=== PATIENT | female | born 1940 | race Caucasian/White ===

== ENCOUNTER → 2016-08-08 | Outpatient (CLI) | payer MEDICARE, OTHER ==
[~2016-08-08] MED LIST: AMARYL1 MG PO; BYSTOLIC5 MG PO; CRESTOR5 MG PO; PRILOSEC 20MG20 MG PO; SINGULAIR 110 MG/TAB PO; ZESTRIL 10MG10 MG PO; ZOFRAN8 MG PO
== END ==
LOC: COL.RAD 15:35
DX: I51.7 Cardiomegaly (principal); R05 Cough; Z87.09 Personal history of other diseases of the respiratory system

== ENCOUNTER → 2016-08-14 | Outpatient (CLI) | payer MEDICARE, OTHER | LOC: COL.VAS 11:59 | DX: I34.0 Nonrheumatic mitral (valve) insufficiency (principal); R94.39 Abnormal result of other cardiovascular function study; I51.7 Cardiomegaly; R05 Cough; I10 Essential (primary) hypertension ==

== ENCOUNTER → 2016-08-31 | Outpatient (CLI) | payer MEDICARE, OTHER | LOC: MC.RAD 12:48 | DX: Z12.31 Encounter for screening mammogram for malignant neoplasm of breast (principal) ==

== ENCOUNTER 2017-12-22 12:10 | Emergency (ER) | payer MEDICARE, OTHER ==
[~2017-12-22] VITALS: Ht 147.3 cm; Wt 74.4 kg
[2017-12-22 12:12] VITALS: TEMP 98.5
[2017-12-22] MEDS ORDERED: PROAIR HFA0.09 MG/AC IH (12:25)
[2017-12-22] MEDS ORDERED: 00186-0372-20 IH (12:26)
[2017-12-22 13:30] LABS: BASO % 0.5 % (0.0-2.0); EOS # 0.1 (0.0-0.7); EOS % 1.4 % (0-4.0); GRAN # 4.1 (1.4-6.5); GRAN % 71.6 % (42.2-75.2); HEMOGLOBIN 11.9 g/dl (12.5-16.0); LYMPH # 1.1 (1.2-3.4); LYMPH % 18.9 % (20.0-51.0); MEAN CELL VOLUME 93 fl (80.0-100.0); MEAN CORPUSCULAR HEMOGLOBIN 31 pg (27.0-31.0); MEAN CORPUSCULAR HGB CONC 33 g/dl (33.0-37.0); MEAN PLATELET VOLUME 10.8 fl (7.4-10.4); MONO # 0.4 (0.1-0.6); MONO % 7.1 % (1.7-9.3); PLATELET COUNT 176 K/mm3 (130-400); RED BLOOD COUNT 3.85 M/mm3 (4.10-5.30); REDCELL DISTRIBUTION WIDTH-CV 14.2 % (11.5-14.5)
[2017-12-22 13:31] LABS: HEMATOCRIT 35.7 % (37.0-47.0)
[2017-12-22 13:47] LABS: ALANINE AMINOTRANSFERASE 20 U/L (9-52); ALBUMIN 3.6 gm/dL (3.5-5.0); ALKALINE PHOSPHATASE 103 U/L (50-136); ANION GAP 12 mmol/L (7-16); AST,SGOT 21 U/L (15-37); BILIRUBIN,TOTAL 0.2 mg/dL (0.0-1.0); BLOOD UREA NITROGEN 14 mg/dL (7-17); CALCIUM 9.1 mg/dL (8.4-10.2); CARBON DIOXIDE 26 mmol/L (22-30); CHLORIDE 105 mmol/L (98-107); CREATININE, serum 0.55 mg/dL (0.52-1.25); GLUCOSE 179 mg/dL (74-106); SODIUM 144 mmol/L (137-145); TOTAL PROTEIN 7.1 gm/dL (6.4-8.2)
[2017-12-22 14:05] LABS: TROPONIN-I < 0.012 ng/mL (0.000-0.034)
[2017-12-22] MEDS ORDERED: PREDNISONE10 MG PO (14:29)
[2017-12-22 15:44] VITALS: BP 181/89; PULSE 60
== END 2017-12-22 15:45 | disposition home or self-care (01) ==
LOC: COL.ER 12:10
PROVIDERS: Emergency Medicine
DX: J45.901 Unspecified asthma with (acute) exacerbation (principal); R13.10 Dysphagia, unspecified; E11.9 Type 2 diabetes mellitus without complications
CPT/HCPCS: J1100

== ENCOUNTER → 2018-01-23 | Outpatient (CLI) | payer MEDICARE, OTHER ==
[~2018-01-23] MED LIST changes: +00186-0372-20 IH; +ATIVAN 0.50.5 MG/TAB PO; +PREDNISONE10 MG PO; +PROAIR HFA0.09 MG/AC IH
== END ==
LOC: COL.RAD 15:27
DX: R13.19 Other dysphagia (principal)
CPT/HCPCS: G8996-GN; G8997-GN; G8998-GN

== ENCOUNTER 2018-01-29 12:45 | Outpatient (RCR) | payer MEDICARE, OTHER, MEDICAID | END 2018-04-20 | disposition home or self-care (01) | LOC: WSST | DX: R13.10 Dysphagia, unspecified (principal) | CPT/HCPCS: G8996-GN; G8997-GN ==

== ENCOUNTER → 2018-02-26 | Outpatient (CLI) | payer MEDICARE, OTHER | LOC: COL.RAD 10:47 | DX: J44.9 Chronic obstructive pulmonary disease, unspecified (principal) ==

== ENCOUNTER 2021-06-24 16:58 | Emergency (ER) | payer MEDICARE, OTHER ==
[~2021-06-24] VITALS: Ht 147.3 cm; Wt 76.4 kg
[2021-06-24 17:36] VITALS: BP 186/67; PULSE 65; TEMP 98.8
[2021-06-24] MEDS ORDERED: CEPHALEXIN250 MG/5 M PO (17:46)
== END 2021-06-24 17:59 | disposition home or self-care (01) ==
LOC: COL.ER 16:58
DX: I88.9 Nonspecific lymphadenitis, unspecified (principal); J44.9 Chronic obstructive pulmonary disease, unspecified; E11.9 Type 2 diabetes mellitus without complications; Z79.84 Long term (current) use of oral hypoglycemic drugs; Z79.899 Other long term (current) drug therapy; Z79.51 Long term (current) use of inhaled steroids